=== PATIENT | male | born 1940 | race Caucasian/White ===

== ENCOUNTER → 2023-04-23 15:56 | Outpatient (REF) | payer MEDICARE, SELFPAY | LOC: DHCBS MAIN 15:56 | PROVIDERS: ATTENDING PHYSICIAN Family Medicine; REFERRING PHYSICIAN Internal Medicine Cardiovascular Disease | DX: R01.1 Cardiac murmur, unspecified (principal) | CPT/HCPCS: 93306 ==

== ENCOUNTER → 2023-05-05 06:56 | Outpatient (REF) | payer MEDICARE, SELFPAY ==
[2023-05-05] MEDS: LEXISCAN 0.400000000000000022 MG IV (08:22)
== END ==
LOC: RCS 06:56
PROVIDERS: ATTENDING PHYSICIAN Family Medicine
DX: R07.89 Other chest pain (principal)
CPT/HCPCS: 78452; 93017; A9500; J2785